=== PATIENT | female | born 1965 | race Caucasian/White ===

== ENCOUNTER 2017-07-18 17:27 | Emergency (ER) | payer BC ==
[~2017-07-18] VITALS: Ht 170.2 cm; Wt 75.0 kg
[2017-07-18 17:29] VITALS: BP 142/89; PULSE 84; RESP 18; TEMP 97.5; O2SAT 99
[2017-07-18] MEDS ORDERED: AMLO5TAB2 PO (18:09)
[2017-07-18] MEDS ORDERED: ASPI81CH CHEW (18:09)
[2017-07-18] MEDS ORDERED: ALIR1INJ SQ (18:09)
[2017-07-18] MEDS ORDERED: TICA1TAB PO (18:09)
[2017-07-18] MEDS ORDERED: HYDR12.57 PO (18:09)
[2017-07-18] MEDS ORDERED: VITATAB56 PO (18:09)
--- NOTE | 2017-07-18 18:16 | PD ---
HPI Chief Complaint: Abnormal Results Time Seen by Provider: 18:14 Travel History International Travel<30 days: No Contact w/Intl Traveler<30days: No Traveled to known affect area: No History of Present Illness HPI 51-year-old female presents to the emergency department with reports of DVT seen on ultrasound and her left proximal arm. Patient has significant history of cardiac stent placement 2 months ago at [facility] through the right brachial artery. Patient has been taking an aspirin and Brilinta ( Ticagrelor) 60 Mg Tab 75 Mg PO BID. Patient also taking Hydrochlorothiazide 12.5 Mg Cap 12.5 Mg PO DAILY Praluent Pen Inj Pack (Alirocumab Pen Inj Pack) 75 Mg/Ml Pfpen 75 Mg SQ Q14D and Amlodipine (Amlodipine Besylate) 5 Mg Tab 5 Mg PO BID. Patient states she has not really felt well since having her stent placement. Patient has had increased shortness of breath and chest pressure since her procedure. She denies fever, chills, or productive cough. She denies significant pain in the left arm. Patient originally was seen by her PCP last Monday to have a "enlarged lymph node in the left upper arm" ultrasound was ordered in case it didn't get better which was performed today. DVT was noted and patient was sent to the ED for further evaluation and treatment. She is allergic to meperidine. PFSH Past Medical History Hx Anticoagulant Therapy: Yes Cardiac Catheterization: Yes (STENTS 05/18/17) Cardiovascular Problems: Yes Thyroid Disease: Yes Tetanus Vaccination: > 5 Years ?: Not Past Surgical History Gynecologic Surgery: Yes (HYST) Hysterectomy: Yes Social History Alcohol Use: Yes Tobacco Use: Yes Substance Use: No Allergies-Medications (Allergen,Severity, Reaction): Coded Allergies: meperidine (Unverified Allergy, Unknown, 07/18/17) Reported Meds & Prescriptions Reported Meds & Active Scripts Active Xarelto Starter Pack 15 & 20 mg (Rivaroxaban) 15 Mg (42)- 20 Mg (9) Tab 1 Tab PO DIRECTED Reported Hydrochlorothiazide 12.5 Mg Cap 12.5 Mg PO DAILY Aspirin 81 Mg Chew 81 Mg CHEW DAILY Vitamin D-400 (Cholecalciferol) 400 Unit Tab 400 Units PO DAILY Praluent Pen Inj Pack (Alirocumab Pen Inj Pack) 75 Mg/Ml Pfpen 75 Mg SQ Q14D Brilinta (Ticagrelor) 60 Mg Tab 75 Mg PO BID Amlodipine (Amlodipine Besylate) 5 Mg Tab 5 Mg PO BID Review of Systems Except as stated in HPI: all other systems reviewed are Neg General / Constitutional: No: Fever Eyes: No: Visual changes HENT: No: Headaches Cardiovascular: Positive: Chest Pain or Discomfort, Dyspnea on exertion (see history of present illness), Other, No: Palpitations, Irregular Rhythm, Tachycardia, Diaphoresis (bruising in the lower legs), Syncope, Varicosities, Edema, Cyanosis, Varicosities, Phlebitis, Claudication Respiratory: No: Cough, Shortness of Breath, Wheezing Gastrointestinal: No: Abdominal Pain Genitourinary: No: Dysuria Musculoskeletal: No: Pain Skin: No Rash Neurologic: No: Weakness Psychiatric: No: Depression Endocrine: No: Polydipsia Hematologic/Lymphatic: No: Easy Bruising Physical Exam Narrative GENERAL: Patient appears in no acute distress. SKIN: Warm and dry. Normal color. Normal turgor. Patient has some old superficial ecchymotic areas to both lower extremities. HEAD: Atraumatic. Normocephalic. EYES: Pupils equal and round. No scleral icterus. No injection or drainage. ENT: No nasal bleeding or discharge. Mucous membranes pink and moist. Pharynx is clear. Airway is patent. NECK: Trachea midline. No JVD. CARDIOVASCULAR: Regular rate and rhythm. No murmurs gallops or rubs. RESPIRATORY: No accessory muscle use. Clear to auscultation. Breath sounds equal bilaterally. No wheezes, rales, or rhonchi. GASTROINTESTINAL: Abdomen soft, non-tender, nondistended. Hepatic and splenic margins not palpable. MUSCULOSKELETAL: Extremities without clubbing, cyanosis, or edema. No obvious deformities. NEUROLOGICAL: Awake and alert. No obvious cranial nerve deficits. Motor grossly within normal limits. Five out of 5 muscle strength in the arms and legs. Normal speech. PSYCHIATRIC: Appropriate mood and affect; insight and judgment normal. Data Data Last Documented VS Vital Signs Date Time Temp Pulse Resp B/P (MAP) Pulse Ox O2 Delivery O2 Flow Rate FiO2 07/18/17 20:29 72 16 122/67 (85) 99 Room Air 07/18/17 17:29 97.5 Orders Orders Electrocardiogram (07/18/17 18:44) Ckmb (Isoenzyme) Profile (07/18/17 18:44) Complete Blood Count With Diff (07/18/17 18:44) Comprehensive Metabolic Panel (07/18/17 18:44) Magnesium (Mg) (07/18/17 18:44) Prothrombin Time / Inr (Pt) (07/18/17 18:44) Act Partial Throm Time (Ptt) (07/18/17 18:44) Troponin I (07/18/17 18:44) Chest, Single Ap (07/18/17 18:44) Ecg Monitoring (07/18/17 18:44) Bilateral Bp Monitoring (07/18/17 18:44) Iv Access Insert/Monitor (07/18/17 18:44) Oximetry (07/18/17 18:44) Oxygen Administration (07/18/17 18:44) Aspirin Chew (Aspirin Chew) (07/18/17 18:45) Sodium Chloride 0.9% Flush (Ns Flush) (07/18/17 18:45) Sodium Chlorid 0.9% 500 Ml Inj (Ns 500 M (07/18/17 18:45) Ct Pulmonary Angiogram (07/18/17 18:44) Iohexol 350 Inj (Omnipaque 350 Inj) (07/18/17 21:43) Electrocardiogram (07/18/17 ) Rivaroxaban (Xarelto) (07/18/17 22:30) Labs Laboratory Tests Test 07/18/17 19:00 White Blood Count 11.5 TH/MM3 Red Blood Count 4.93 MIL/MM3 Hemoglobin 14.3 GM/DL Hematocrit 43.4 % Mean Corpuscular Volume 88.1 FL Mean Corpuscular Hemoglobin 29.0 PG Mean Corpuscular Hemoglobin Concent 32.9 % Red Cell Distribution Width 13.2 % Platelet Count 248 TH/MM3 Mean Platelet Volume 9.5 FL Neutrophils (%) (Auto) 54.7 % Lymphocytes (%) (Auto) 33.9 % Monocytes (%) (Auto) 8.1 % Eosinophils (%) (Auto) 2.8 % Basophils (%) (Auto) 0.5 % Neutrophils # (Auto) 6.3 TH/MM3 Lymphocytes # (Auto) 3.9 TH/MM3 Monocytes # (Auto) 0.9 TH/MM3 Eosinophils # (Auto) 0.3 TH/MM3 Basophils # (Auto) 0.1 TH/MM3 CBC Comment DIFF FINAL Differential Comment Prothrombin Time 10.2 SEC Prothromb Time International Ratio 0.9 RATIO Activated Partial Thromboplast Time 34.5 SEC Blood Urea Nitrogen 11 MG/DL Creatinine 0.64 MG/DL Random Glucose 69 MG/DL Total Protein 7.3 GM/DL Albumin 4.0 GM/DL Calcium Level 8.8 MG/DL Magnesium Level 1.9 MG/DL Alkaline Phosphatase 43 U/L Aspartate Amino Transf (AST/SGOT) 12 U/L Alanine Aminotransferase (ALT/SGPT) 23 U/L Total Bilirubin 0.6 MG/DL Sodium Level 137 MEQ/L Potassium Level 3.4 MEQ/L Chloride Level 105 MEQ/L Carbon Dioxide Level 24.2 MEQ/L Anion Gap 8 MEQ/L Estimat Glomerular Filtration Rate 97 ML/MIN Total Creatine Kinase 56 U/L Troponin I LESS THAN 0.02 NG/ML MDM Medical Decision Making Medical Screen Exam Complete: Yes Emergency Medical Condition: Yes Medical Record Reviewed: Yes Differential Diagnosis Diagnosed DVT left arm. Possible PE. Cardiac syndrome. Stent placement. Patient on anticoagulation with DVT. Narrative Course Patient appears medically stable at time of exam. Patient is discussed with Dr. Antony who recommends labs including CBC, CMP, cardiac panel, and PT PTT and INR. EKG is performed as well as CTA to rule out PE. IV access is obtained. Patient is given an additional 324 mg aspirin by mouth. CBC shows slight leukocytosis of 11.5 without shift. Coagulation studies show PT of 10.2, INR of 0.9, a PTT of 34.5. Chemistries are unremarkable except for potassium 3.4, glucose 69, troponin is less than 0.02. EKG shows normal sinus rhythm without ST changes. Chest x-ray shows no acute process per radiology CTA shows no PE or other acute process. Patient discussed with Dr. Lane who recommends starting the patient on Zaroxolyn an outpatient basis Patient is started to call her operating engineer tomorrow to let them know that she was diagnosed with DVT of the left arm, and started on Xaralto. Patient follow with her primary care physician regarding the DVT in the next week to ensure improvement. Patient can return the emergency Department at any time as needed. Diagnosis Primary Impression: DVT of left axillary vein, acute Referrals: [facility]p Grinder call for appointment Primary Care Physician call for appointment Patient Instructions: Deep Vein Thrombosis Prevention (ED), General Instructions Additional Instructions: CBC shows slight leukocytosis of 11.5 without shift. Coagulation studies show PT of 10.2, INR of 0.9, a PTT of 34.5. Chemistries are unremarkable except for potassium 3.4, glucose 69, troponin is less than 0.02. EKG shows normal sinus rhythm without ST changes. Chest x-ray shows no acute process per radiology CTA shows no PE or other acute process. Patient discussed with Dr. Lane who recommends starting the patient on Zaroxolyn an outpatient basis Patient is started to call her operating engineer tomorrow to let them know that she was diagnosed with DVT of the left arm, and started on Xaralto. Patient follow with her primary care physician regarding the DVT in the next week to ensure improvement. Patient can return the emergency Department at any time as needed. Med/Other Pt SpecificInfo: Prescription(s) given Scripts Rivaroxaban Starter Pack 15 & 20 mg (Xarelto Starter Pack 15 & 20 mg) 15 Mg (42) - 20 Mg (9) Tab 1 TAB PO DIRECTED for Blood Clot Prevention, #1 PACK 0 Refills Prov: Igor Lane MD 07/18/17 Disposition: 01 DISCHARGE HOME Condition: Stable Vic Kuo Jul 18, 2017 18:16
[2017-07-18] MEDS ORDERED: SODIUM CHLORID 0.9% 500 ML INJ 500 ML IV ONE (18:45)
[2017-07-18] MEDS ORDERED: SODIUM CHLORIDE 0.9% FLUSH 10 ML FLUSH IVF PRN (18:45)
[2017-07-18] MEDS ORDERED: ASPIRIN 81 MG CHEW TAB PO ONE (18:45)
[2017-07-18 19:28] LABS: AUTOMATED NEUTROPHIL # 6.3 TH/MM3 (1.8-7.7); BASOPHIL # 0.1 TH/MM3 (0-0.2); BASOPHIL % 0.5 % (0.0-2.0); EOSINOPHIL # 0.3 TH/MM3 (0-0.4); EOSINOPHIL % 2.8 % (0.0-4.0); HEMATOCRIT 43.4 % (35.0-46.0); HEMO FLAGS DIFF FINAL; LYMPH % 33.9 % (9.0-44.0); LYMPHOCYTE # 3.9 TH/MM3 (1.0-4.8); MEAN CELL VOLUME 88.1 FL (80.0-100.0); MEAN CORPUSCULAR HGB CONC 32.9 % (32.0-36.0); MONO % 8.1 % (0.0-8.0); NEUT % 54.7 % (16.0-70.0); PLATELET COUNT 248 TH/MM3 (150-450); RED BLOOD COUNT 4.93 MIL/MM3 (4.00-5.30); RED CELL DISTRIBUTION WIDTH 13.2 % (11.6-17.2); WHITE BLOOD COUNT 11.5 TH/MM3 (4.0-11.0)
--- NOTE | 2017-07-18 19:32 | RADRPT ---
EXAM DATE/TIME: 07/18/2017 19:11 [facility] COMPARISON: No previous studies available for comparison. INDICATIONS : Chest pain, shortness of breath. MEDICAL HISTORY : Hypertension. Smoker. SURGICAL HISTORY : Coronary artery stent. ENCOUNTER: Initial ACUITY: 2 months PAIN SCORE: 3/10 LOCATION: Left chest FINDINGS: The lungs are clear without infiltrate, nodule, or mass. There is no appreciable pleural effusion fo r technique. Heart and mediastinum are unremarkable. CONCLUSION: No acute cardiopulmonary disease. Shaka Woods MD on July 18, 2017 at 19:30 Board Certified Radiologist. This report was verified electronically.
[2017-07-18 19:43] LABS: ANION GAP 8 MEQ/L (5-15); AST (GOT) 12 U/L (15-37); BICARBONATE 24.2 MEQ/L (21.0-32.0); BLOOD UREA NITROGEN 11 MG/DL (7-18); CHLORIDE 105 MEQ/L (98-107); GLOMERULAR FILTRATION RATE 97 ML/MIN (>89); MAGNESIUM 1.9 MG/DL (1.5-2.5); POTASSIUM 3.4 MEQ/L (3.5-5.1); SODIUM (NA) 137 MEQ/L (136-145)
[2017-07-18 19:45] LABS: ALT (GPT) 23 U/L (10-53)
[2017-07-18 19:48] LABS: ALKALINE PHOSPHATASE 43 U/L (45-117); TOTAL BILIRUBIN ADULT 0.6 MG/DL (0.2-1.0)
[2017-07-18 19:51] LABS: CREATINE KINASE 56 U/L (26-192)
[2017-07-18 19:56] LABS: APTT (PATIENT) 34.5 SEC (24.3-30.1); INTERNATIONAL NORMALIZED RATIO 0.9 RATIO; PROTHROMBIN TIME - PATIENT 10.2 SEC (9.8-11.6)
[2017-07-18 20:27] VITALS: BP 122/67; PULSE 72; RESP 16; O2SAT 99
[2017-07-18 20:29] VITALS: BP 122/67; PULSE 72; RESP 16; O2SAT 99
[2017-07-18] MEDS ORDERED: IOHEXOL 350 MG/ML 10 ML VIAL (for RAD DIAG) IVCONTRAST ONE (21:43)
--- NOTE | 2017-07-18 21:52 | RADRPT ---
EXAM DATE/TIME: 07/18/2017 21:32 [facility] COMPARISON: No previous studies available for comparison. INDICATIONS : Shortness of breath. IV CONTRAST: 75 cc Omnipaque 350 (iohexol) IV RADIATION DOSE: 22.11 CTDIvol (mGy) MEDICAL HISTORY : Cardiovascular disease. Deep venous thrombosis. SURGICAL HISTORY : Hysterectomy. Cardiac stent. ENCOUNTER: Initial ACUITY: 2 days PAIN SCALE: 0/10 LOCATION: chest TECHNIQUE: Volumetric scanning of the chest was performed using a pulmonary embolism protocol MIP images were re constructed. Using automated exposure control and adjustment of the mA and/or kV according to patien t size, radiation dose was kept as low as reasonably achievable to obtain optimal diagnostic quality images. DICOM format image data is available electronically for review and comparison. Follow-up recommendations for detected pulmonary nodules are based at a minimum on nodule size and pa tient risk factors according to Fleischner Society Guidelines. FINDINGS: The lungs are clear without infiltrate, nodule, or mass. There is no pleural effusion. No appreciab le pathological adenopathy is seen within the mediastinum. There are cysts in the liver the largest m easures 7.2 cm in size. There are atherosclerotic calcifications of the aorta due to chronic atherosc lerotic disease. There is no evidence for PE for technique. CONCLUSION: There is no evidence for PE for technique. Shaka Woods MD on July 18, 2017 at 21:48 Board Certified Radiologist. This report was verified electronically.
[2017-07-18] MEDS ORDERED: RIVA1TAB PO ×2 (22:09→22:19)
[2017-07-18] MEDS ORDERED: RIVAROXABAN 15 MG TAB PO ONE (22:30)
--- NOTE | 2017-07-19 14:01 | EKG ---
Date Performed: 07/18/2017 Time Performed: 20:29:07 PTAGE: 51 years EKG: Sinus rhythm NORMAL ECG PREVIOUS TRACING : 07/18/2017 18.14 DOCTOR: Rahul Mcginnis Interpretating Date/Time 07/19/2017 13:55:55
--- NOTE | 2017-07-19 14:05 | EKG ---
Date Performed: 07/18/2017 Time Performed: 18:14:22 PTAGE: 51 years EKG: Sinus rhythm NORMAL ECG NO PREVIOUS TRACING DOCTOR: Rahul Mcginnis Interpretating Date/Time 07/19/2017 13:57:38
== END 2017-07-19 00:01 | disposition home or self-care (01) ==
LOC: NEPC 17:27
DX: I82.A12 Acute embolism and thrombosis of left axillary vein (principal); R06.02 Shortness of breath; Z79.01 Long term (current) use of anticoagulants; Z72.0 Tobacco use; Z79.899 Other long term (current) drug therapy
CPT/HCPCS: 71010; 71275; 80053; 82550; 83735; 84484; 85025; 85610; 85730; 93005; 99285; J7040; Q9967